=== PATIENT | male | born 1985 | race Caucasian/White ===

== ENCOUNTER 2018-04-23 19:11 | Emergency (ER) | payer SELFPAY ==
[~2018-04-23] VITALS: Ht 185.4 cm; Wt 116.0 kg
[2018-04-23] MEDS ORDERED: ACETAMINOPHEN 500 MG TABLET ONE (19:55)
[2018-04-23] MEDS ORDERED: ACETAMINOPHEN 500 MG TABLET PO ONE (20:00)
[2018-04-23 20:19] LABS: ALBUMIN 3.8 g/dL (3.4-5.0); ANION GAP 7 mmol/L (5-15); CALCIUM 8.5 mg/dL (8.5-10.1); CHLORIDE 108 mmol/L (98-107)
[2018-04-23 20:38] LABS: MEAN CORPUSCULAR HEMOGLOBIN 17.5 pg (27.5-34.5); MEAN CORPUSCULAR HGB CONC 29.4 g/dL (33.2-36.2); MEAN CORPUSCULAR VOLUME 59.3 fL (81-97); MEAN PLATELET VOLUME 9.1 fL (7.4-10.4); PLATELET COUNT 142 x10^3/uL (130-400); RED BLOOD COUNT 5.28 x10^6/uL (4.38-5.82); RED CELL DISTRIBUTION WIDTH 20.9 % (9.4-14.8)
[2018-04-23 20:44] LABS: RAPID INFLUENZA A Negative (Negative); RAPID INFLUENZA B Negative (Negative)
[2018-04-23 21:03] LABS: MD YES
[2018-04-23 21:06] LABS: BAND#(MANUAL) 0.17 x10^3/uL; BANDS%(MANUAL) 3 % (0-7); BASOS#(MANUAL) 0.11 x10^3/uL (0-0.1); BASOS% (MANUAL) 2 % (0-1); EOS#(MANUAL) 0.22 x10^3/uL (0.0-0.4); EOS% (MANUAL) 4 % (1-7); LYMPH#(MANUAL) 1.32 x10^3/uL (1-3.4); LYMPHS% (MANUAL) 24 % (22-44); MONOS#(MANUAL) 0.72 x10^3/uL (0.3-2.7); MONOS% (MANUAL) 13 % (2-9); SEG#(MANUAL) 2.97 x10^3/uL (1.8-6.8); SEGS% (MANUAL) 54 % (42-75)
[2018-04-23 21:07] LABS: ANISOCYTOSIS 2+; MICROCYTOSIS 2+
[2018-04-23 21:09] LABS: HYPOCHROMIA 2+; OVALOCYTES 1+; POLYCHROMASIA 1+
[2018-04-23 21:10] VITALS: BP 119/70
[2018-04-23 21:10] LABS: TEAR DROPS 1+
[2018-04-23 21:11] LABS: <PLATELET ESTIMATE> ADEQUATE; LARGE PLATELETS 1+
== END 2018-04-23 21:12 | disposition home or self-care (01) ==
LOC: ED 21:06
DX: R06.00 Dyspnea, unspecified (principal); J15.9 Unspecified bacterial pneumonia
CPT/HCPCS: 36415; 71046; 80048; 82040; 85025; 87400; 99284

== ENCOUNTER 2020-10-01 20:04 | Emergency (ER) | payer OTHER ==
[~2020-10-01] VITALS: Ht 185.4 cm; Wt 128.0 kg
[2020-10-01 20:15] VITALS: BP 197/115
--- NOTE | 2020-10-01 20:33 | NUR ---
PT IN SEVERE DISTRESS D/T FLANK PAIN. VOIDING SMALL AMOUNTS FREQUENTLY. RV'WD POC WITH PT, HE VERBALIZES UNDERSTANDING.
--- NOTE | 2020-10-01 20:45 | NUR ---
PT BACK FROM IMAGING VIA WC.
[2020-10-01] MEDS ORDERED: KETOROLAC 30 MG/1 ML ONE (20:47)
[2020-10-01 20:57] LABS: MICROSCOPIC INDICATED
[2020-10-01] MEDS ORDERED: KETOROLAC 30 MG/1 ML IM ONE (21:00)
--- NOTE | 2020-10-01 21:04 | NUR ---
REPORTED TO NAI CALVILLO. Addendum: 10/01/20 at 2106 by HBENSON PT WAS MEDICATED PER ORDERS. PACING AROUND ROOM D/T FLANK PAIN.
[2020-10-01] MEDS ORDERED: HYDROmorphone 1 MG/ML, 1ML INJ ONE ×2 (21:09→22:40)
[2020-10-01] MEDS ORDERED: ONDANSETRON 2MG/ML, 2ML ONE (21:10)
[2020-10-01 21:21] LABS: ALBUMIN 4.3 g/dL (3.4-5.0); ANION GAP 11 mmol/L (5-15); CALCIUM 9.2 mg/dL (8.5-10.1); CHLORIDE 104 mmol/L (98-107)
[2020-10-01 21:23] LABS: BASOPHILS % (AUTO) 1 % (0-1); EOSINOPHILS % (AUTO) 2 % (1-7); LYMPHOCYTES % (AUTO) 13 % (22-44); MEAN CORPUSCULAR HEMOGLOBIN 19.2 pg (27.5-34.5); MEAN PLATELET VOLUME 9.3 fL (7.4-10.4); MONOCYTES % (AUTO) 11 % (2-9); NEUTROPHILS % (AUTO) 73 % (42-75); PLATELET COUNT 265 x10^3/uL (130-400); RED BLOOD COUNT 5.31 x10^6/uL (4.38-5.82); RED CELL DISTRIBUTION WIDTH 18.7 % (9.4-14.8)
[2020-10-01] MEDS: HYDROmorphone 2 MG/ML, 1ML IVPush PRN ×2 (21:26→22:54)
--- NOTE | 2020-10-01 21:29 | NUR ---
PT PACING AROUND ROOM IN PAIN. IV STARTED AND PT MEDICATED FOR PAIN. PT PLACED ON BP AND SPO2 MONITORS.
[2020-10-01 22:01] LABS: MD MORPH REVIEW ONLY; MEAN CORPUSCULAR HGB CONC 29.5 g/dL (33.2-36.2)
[2020-10-01 22:05] LABS: ANISOCYTOSIS 2+; HYPOCHROMIA 2+; MICROCYTOSIS 2+; POLYCHROMASIA 1+
[2020-10-01 22:10] LABS: OVALOCYTES 1+; TARGET CELLS 1+
[2020-10-01 22:12] LABS: <PLATELET ESTIMATE> ADEQUATE
[2020-10-01 22:13] LABS: LARGE PLATELETS 1+
== END 2020-10-01 23:08 | disposition home or self-care (01) ==
LOC: ED 21:32
DX: N20.0 Calculus of kidney (principal); R10.9 Unspecified abdominal pain
CPT/HCPCS: 36415; 74176; 80048; 81001; 82040; 85025; 96372; 96374; 96376; 99285; J1170; J1885